=== PATIENT | female | born 1970 | race Caucasian/White ===

== ENCOUNTER 2022-12-20 05:18 | Inpatient (IN) | payer OTHER ==
[2022-12-19 11:12] VITALS: BMI 35.4
[2022-12-20] MEDS ORDERED: METHYLENE BLUE 50 MG/10 ML AMPUL ONE (08:26)
[2022-12-20] MEDS ORDERED: ISOSULFAN BLUE 50 MG/5 ML VIAL SQ ONE ×2 (08:26→09:35)
[2022-12-20] MEDS ORDERED: MIDAZOLAM HCL 2 MG/2 ML SINGLE DOSE VIAL ONE (09:46)
[2022-12-20] MEDS ORDERED: PROPOFOL 20 ML ONE (09:46)
[2022-12-20] MEDS ORDERED: FENTANYL CITRATE/PF 50 MCG/ML VIAL ONE ×4 (09:46→15:28)
[2022-12-20] MEDS ORDERED: LIDOCAINE HCL/PF 2% SDV 5ML VIAL ONE (09:46)
[2022-12-20] MEDS ORDERED: ROCURONIUM BROMIDE 50 MG/5 ML SYRINGE ONE ×2 (09:46→11:04)
[2022-12-20] MEDS ORDERED: ceFAZolin SODIUM 1 GM VIAL ONE (09:46)
[2022-12-20] MEDS ORDERED: ceFAZolin SODIUM 1 GM VIAL IVPB ONE (10:09)
[2022-12-20] MEDS ORDERED: DEXAMETHASONE SOD PHOSPHATE 4 MG/1 ML VIAL ONE (10:13)
[2022-12-20] MEDS ORDERED: ONDANSETRON 4 MG/2 ML VIAL ONE ×2 (10:13→16:00)
[2022-12-20] MEDS ORDERED: HYDROmorphone HCl 2 MG/ML VIAL ONE (10:15)
[2022-12-20] MEDS ORDERED: ACETAMINOPHEN 500 MG TABLET (FP) PO PRN ×2 (11:29→14:41)
[2022-12-20] MEDS ORDERED: morphine SULFATE/PF 30 MG/30 ML *PCA* DISP.SYRIN PCA SCH (11:30)
[2022-12-20] MEDS ORDERED: SEVOFLURANE 250 ML BTL ONE (13:42)
[2022-12-20] MEDS ORDERED: ACETAMINOPHEN INJECTION 100 ML IVPB ONE (13:49)
[2022-12-20] MEDS ORDERED: ACETAMINOPHEN 325 MG TABLET (FP) PO PRN ×2 (14:45)
[2022-12-20] MEDS ORDERED: oxyCODONE HCL 5 MG TABLET PO PRN ×2 (14:45)
[2022-12-20] MEDS ORDERED: HYDROmorphone *PCA* 10MG/50ML DISP.SYRIN PCA SCH (15:00)
[2022-12-20] MEDS ORDERED: HYDROmorphone *PCA* 10MG/50ML DISP.SYRIN ONE (15:28)
[2022-12-20] MEDS: ONDANSETRON 4 MG/2 ML VIAL IVPB PRN ×2 (16:00→21:18)
[2022-12-20] MEDS: LACTATED RINGERS SOLUTION 1,000 ML IV SCH ×2 (16:00→17:25)
[2022-12-20] MEDS ORDERED: CEFAZOLIN 1 GM in DEXTROSE 5%-WATER - 50 ML IVPB SCH (18:00)
[2022-12-20 18:26] VITALS: RESP 20
[2022-12-20] MEDS: CEFAZOLIN 1 GM in DEXTROSE 5%-WATER - 50 ML IVPB SCH (19:02)
[2022-12-20] MEDS: ACETAMINOPHEN 500 MG TABLET (FP) PO SCH (21:25)
[2022-12-21] MEDS: CEFAZOLIN 1 GM in DEXTROSE 5%-WATER - 50 ML IVPB SCH ×2 (01:47→10:18)
[2022-12-21] MEDS: ACETAMINOPHEN 500 MG TABLET (FP) PO SCH ×2 (06:12→14:14)
[2022-12-21] MEDS: ONDANSETRON 4 MG/2 ML VIAL IVPB PRN (06:15)
[2022-12-21] MEDS ORDERED: oxyCODONE HCL 5 MG TABLET PO PRN ×2 (08:30)
[2022-12-21] MEDS: LACTATED RINGERS SOLUTION 1,000 ML IV SCH (10:19)
[2022-12-21 15:41] VITALS: BP 131/76; PULSE 71; TEMP 98.4
== END 2022-12-21 14:34 | disposition home or self-care (01) | DRG 581 ==
LOC: J2C 05:18 → EDSTATUS 08:15 → J8W 17:11
PROVIDERS: ADMIT Surgery; ATTEND Surgery
PROC: 0HTV0ZZ Resection of Bilateral Breast, Open Approach (ICD-10-PCS; principal; 2022-12-20 09:00)
PROC: 0HHV0NZ Insertion of Tissue Expander into Bilateral Breast, Open Approach (ICD-10-PCS; 2022-12-20 09:00)
PROC: 07B50ZX Excision of Right Axillary Lymphatic, Open Approach, Diagnostic (ICD-10-PCS; 2022-12-20 09:00)
PROC: 07B60ZX Excision of Left Axillary Lymphatic, Open Approach, Diagnostic (ICD-10-PCS; 2022-12-20 09:00)
DX: C50.811 Malignant neoplasm of overlapping sites of right female breast (principal); D05.12 Intraductal carcinoma in situ of left breast; E78.5 Hyperlipidemia, unspecified; E66.9 Obesity, unspecified; Z68.35 Body mass index [BMI] 35.0-35.9, adult; E61.1 Iron deficiency
CPT/HCPCS: 78195-TC; 81025; 86850; 86900; 86901; 94760; A9541; Q4116; Q9968

== ENCOUNTER 2024-01-08 05:11 | Day surgery (SDC) | payer OTHER ==
[2024-01-06 13:36] VITALS: BMI 31.3
[2024-01-08 08:45] LABS: POTASSIUM 3.4 mmol/L (3.5-5.1)
[2024-01-08 08:46] LABS: CALCIUM 9.2 mg/dL (8.5-10.1)
[2024-01-08 08:47] LABS: BLOOD UREA NITROGEN 15.2 mg/dL (7-18)
[2024-01-08 08:50] LABS: CREATININE 0.9 mg/dL (0.55-1.3)
[2024-01-08] MEDS ORDERED: BUPIVACAINE HCL/PF 0.25% (2.5MG/ML) 10 ML VIAL ONE (09:21)
[2024-01-08] MEDS ORDERED: PROPOFOL 20 ML ONE (09:47)
[2024-01-08] MEDS ORDERED: MIDAZOLAM HCL 2 MG/2 ML SINGLE DOSE VIAL ONE (09:48)
[2024-01-08] MEDS: ceFAZolin SODIUM 1 GM VIAL IVPB ONE ×2 (10:05)
[2024-01-08] MEDS: BUPIVACAINE HCL/PF 0.25% (2.5MG/ML) 10 ML VIAL IJ ONE ×2 (10:18)
[2024-01-08] MEDS ORDERED: ONDANSETRON 4 MG/2 ML VIAL ONE ×2 (11:41→12:31)
[2024-01-08] MEDS ORDERED: ceFAZolin SODIUM 1 GM VIAL ONE (11:41)
[2024-01-08] MEDS ORDERED: DEXAMETHASONE SOD PHOSPHATE 4 MG/1 ML VIAL ONE (11:41)
[2024-01-08] MEDS ORDERED: LACTATED RINGERS SOLUTION 1,000 ML IV SCH (13:30)
[2024-01-08] MEDS: ONDANSETRON 4 MG/2 ML VIAL IVPUSH PRN (13:33)
[2024-01-08 13:38] VITALS: RESP 18
[2024-01-08 14:22] VITALS: BP 122/66; PULSE 65; TEMP 97
== END 2024-01-08 14:28 | disposition home or self-care (01) ==
LOC: JASU-SURG 05:11
PROVIDERS: ATTEND Plastic Surgery
PROC: 0HNV0ZZ Release Bilateral Breast, Open Approach (ICD-10-PCS; principal; 2024-01-08 08:00)
PROC: 0HUV0JZ Supplement Bilateral Breast with Synthetic Substitute, Open Approach (ICD-10-PCS; 2024-01-08 08:00)
DX: Z42.1 Encounter for breast reconstruction following mastectomy (principal); Z85.3 Personal history of malignant neoplasm of breast
CPT/HCPCS: 36415; 80048; 81025; 88300-TC; 88304-TC; 94760; Q4116

== ENCOUNTER 2024-04-14 06:52 | Day surgery (SDC) | payer OTHER ==
[2024-04-10 15:05] VITALS: BMI 29.7
[2024-04-14 08:24] LABS: BASO % 0.3 % (0-2.0); EOS % 1.2 % (0-4.5); HEMATOCRIT 31.8 % (32.4-45.2); HEMOGLOBIN 10.7 GM/dL (10.7-15.3); INR 1.07 (0.83-1.09); LYMPH % 17.1 % (8-40); MCH 28.9 pg (25.7-33.7); MCHC 33.6 g/dl (32.0-36.0); MEAN CELL VOLUME 85.9 fl (80-96); MONO % 5.9 % (3.8-10.2); NEUT % 75.5 % (42.8-82.8); PLATELET COUNT 210 10^3/uL (134-434); PROTHROMBIN TIME (PATIENT) 11.7 SEC (9.7-13.0); RBC 3.71 M/mm3 (3.60-5.2); RDW 13.8 % (11.6-15.6); WHITE BLOOD COUNT 6.4 K/mm3 (4.0-10.0)
[2024-04-14 08:31] LABS: POTASSIUM 3.3 mmol/L (3.5-5.1)
[2024-04-14 08:34] LABS: CALCIUM 8.6 mg/dL (8.5-10.1)
[2024-04-14 08:35] LABS: ALBUMIN 3.4 g/dl (3.4-5.0); BLOOD UREA NITROGEN 17.1 mg/dL (7-18)
[2024-04-14 08:38] LABS: CREATININE 0.8 mg/dL (0.55-1.3)
[2024-04-14 08:39] LABS: BILIRUBIN,TOTAL 0.6 mg/dL (0.2-1)
[2024-04-14] MEDS ORDERED: MIDAZOLAM HCL 2 MG/2 ML SINGLE DOSE VIAL ONE (09:10)
[2024-04-14] MEDS ORDERED: ONDANSETRON 4 MG/2 ML VIAL ONE (09:11)
[2024-04-14] MEDS ORDERED: DEXAMETHASONE SOD PHOSPHATE 4 MG/1 ML VIAL ONE (09:11)
[2024-04-14] MEDS ORDERED: KETOROLAC TROMETHAMINE 30 MG/1 ML VIAL ONE (09:11)
[2024-04-14] MEDS: ceFAZolin SODIUM 1 GM VIAL IVPB ONE ×2 (10:10)
[2024-04-14] MEDS ORDERED: SUGAMMADEX SODIUM 200 MG/2 ML VIAL ONE (11:49)
[2024-04-14] MEDS ORDERED: PROPOFOL 20 ML ONE (11:51)
[2024-04-14] MEDS ORDERED: ACETAMINOPHEN 1000 MG/100 ML BAG IVPB ONE (12:55)
[2024-04-14] MEDS ORDERED: ONDANSETRON 4 MG/2 ML VIAL IVPUSH PRN (12:55)
[2024-04-14] MEDS ORDERED: PROMETHAZINE HCL 25 MG/1 ML VIAL IVPB PRN (12:55)
[2024-04-14] MEDS ORDERED: oxyCODONE HCL 5 MG TABLET PO PRN ×2 (12:55)
[2024-04-14] MEDS ORDERED: LACTATED RINGERS SOLUTION 1,000 ML IV SCH (13:00)
[2024-04-14 14:26] VITALS: RESP 18
[2024-04-14 15:14] VITALS: BP 129/63; PULSE 72; TEMP 97.2
== END 2024-04-14 15:05 | disposition home or self-care (01) ==
LOC: JASU-SURG 06:52
PROVIDERS: ATTEND Plastic Surgery
PROC: 0HRV0JZ Replacement of Bilateral Breast with Synthetic Substitute, Open Approach (ICD-10-PCS; 2024-04-14)
PROC: 0HPU0JZ Removal of Synthetic Substitute from Left Breast, Open Approach (ICD-10-PCS; principal; 2024-04-14 09:00)
PROC: 0HPT0JZ Removal of Synthetic Substitute from Right Breast, Open Approach (ICD-10-PCS; 2024-04-14 09:00)
DX: Z85.3 Personal history of malignant neoplasm of breast (principal); Z90.13 Acquired absence of bilateral breasts and nipples; N65.1 Disproportion of reconstructed breast; N64.2 Atrophy of breast; Z92.3 Personal history of irradiation
CPT/HCPCS: 15777; 19342; 19370; L8600; 36415; 80053; 85025; 85610; 88304-TC; 94760; Q4116

== ENCOUNTER 2024-05-07 09:53 | Day surgery (SDC) | payer OTHER ==
[2024-05-07 10:41] LABS: ABSOLUTE IMMATURE GRANULOCYTES 0.02 x10^3/uL (0.0-0.031); BASOPHILS # 0.02 x10^3/uL (0.01-0.08); EOSINOPHIL % 2.3 % (0.7-5.8); EOSINOPHILS # 0.12 x10^3/uL (0.04-0.36); HEMATOCRIT 33.2 % (34.1-44.9); MCHC 33.1 g/dl (32.2-35.5); MEAN CELL VOLUME 86.7 fl (79.4-94.8); MONOCYTE # 0.37 x10^3/uL (0.24-0.86); PLATELET COUNT # 189 x10^3/uL (182-369); RDW 12.8 % (12.3-16.6)
[2024-05-07 10:46] LABS: INR 1.06 (0.83-1.09); PROTHROMBIN TIME (PATIENT) 12.1 SEC (9.7-13.0)
[2024-05-07 10:52] VITALS: BMI 31.3
[2024-05-07 10:59] LABS: ALBUMIN 4.1 g/dl (3.4-5.0); CALCIUM 9.2 mg/dl (8.5-10.1); CREATININE 0.8 mg/dl (0.6-1.3); POTASSIUM 3.3 mmol/L (3.5-5.1); TOT PROT 6.1 g/dl (6.4-8.2)
[2024-05-07] MEDS: POTASSIUM CHLORIDE ORAL LIQUID 20 MEQ/15 ML PO ONE (11:17)
[2024-05-07] MEDS ORDERED: BUPIVACAINE HCL/PF 0.25% (2.5MG/ML) 10 ML VIAL ONE (12:20)
[2024-05-07] MEDS ORDERED: PROPOFOL 20 ML ONE (12:27)
[2024-05-07] MEDS ORDERED: MIDAZOLAM HCL 2 MG/2 ML SINGLE DOSE VIAL ONE (12:28)
[2024-05-07] MEDS ORDERED: ROCURONIUM BROMIDE 50 MG/5 ML SYRINGE ONE (12:31)
[2024-05-07] MEDS ORDERED: SUGAMMADEX SODIUM 200 MG/2 ML VIAL ONE (12:45)
[2024-05-07] MEDS ORDERED: DEXAMETHASONE SOD PHOSPHATE 4 MG/1 ML VIAL ONE (12:50)
[2024-05-07] MEDS ORDERED: ceFAZolin SODIUM 1 GM VIAL ONE (12:51)
[2024-05-07] MEDS ORDERED: ONDANSETRON 4 MG/2 ML VIAL ONE (14:32)
[2024-05-07] MEDS ORDERED: KETOROLAC TROMETHAMINE 30 MG/1 ML VIAL ONE (14:32)
[2024-05-07] MEDS ORDERED: LIDOCAINE HCL/PF 2% SDV 5ML VIAL ONE (14:32)
[2024-05-07] MEDS ORDERED: LACTATED RINGERS SOLUTION 1,000 ML IV SCH (14:45)
[2024-05-07] MEDS ORDERED: oxyCODONE HCL 5 MG TABLET PO PRN (14:45)
[2024-05-07] MEDS: ACETAMINOPHEN 1000 MG/100 ML BAG IVPB ONE (15:00)
[2024-05-07] MEDS ORDERED: FENTANYL CITRATE/PF 50 MCG/ML VIAL ONE (15:20)
[2024-05-07] MEDS: ONDANSETRON 4 MG/2 ML VIAL IVPUSH PRN (15:30)
[2024-05-07 15:59] VITALS: BP 147/70; PULSE 59; RESP 16; TEMP 96.9
== END 2024-05-07 16:24 | disposition home or self-care (01) ==
LOC: FER 09:53 → FASUSAT 11:23
PROVIDERS: ATTEND Plastic Surgery
PROC: 0HRT0JZ Replacement of Right Breast with Synthetic Substitute, Open Approach (ICD-10-PCS; 2024-05-07)
PROC: 0HPT0JZ Removal of Synthetic Substitute from Right Breast, Open Approach (ICD-10-PCS; principal; 2024-05-07 12:58)
DX: T85.49XA Other mechanical complication of breast prosthesis and implant, initial encounter (principal); Y82.8 Other medical devices associated with adverse incidents; Y92.9 Unspecified place or not applicable; Z85.3 Personal history of malignant neoplasm of breast; Z90.13 Acquired absence of bilateral breasts and nipples; Z92.3 Personal history of irradiation
CPT/HCPCS: 15777; 19342; 19370; L8600; 0241U-QW; 36415; 80053; 85025; 85610; 86850; 86900; 86901; 88300-TC; 93005; 94760; 99285-25; C1789; J0131; Q4116